=== PATIENT | female | born 1975 | race African-American/Black ===

== ENCOUNTER 2016-09-14 11:00 | Emergency (ER) ==
[2016-09-14] MEDS ORDERED: HUMALOG (PARKWAY) IV ONE (11:57)
[2016-09-14] MEDS ORDERED: NS 1,000 ML IV ONE ×4 (11:57→15:10)
[2016-09-14 11:59] LABS: MANUAL DIFF NEEDED? NO
[2016-09-14] MEDS ORDERED: REGLAN IV ONE (11:59)
[2016-09-14] MEDS ORDERED: HUMULIN R IV ONE ×2 (12:00→15:10)
[2016-09-14 12:01] LABS: BASO% 0.3 % (0.0-0.8); EOS# 0.09 X1000 (0.0-0.7); EOS% 1.3 % (0.0-10.0); HEMATOCRIT 39.4 % (37.0-47.0); HEMOGLOBIN 13.2 g/dL (12.0-16.0); IMM GRAN# 0.05 X1000 (0.0-0.04); IMM GRAN% 0.7 % (0.0-0.5); LYMPH% 20.6 % (20.5-51.1); MCH 25.6 PG (27-31); MCHC 33.5 g/dL (33-37); MCV 76.4 FL (81-99); MONO% 10.3 % (1.7-9.3); MPV 12.2 FL (7.4-10.4); NEUT% 66.8 % (42.2-75.2); PLT 350 X1000 (130-400); RBC 5.16 XMIL (4.2-5.4)
--- NOTE | 2016-09-14 12:01 | PROVIDER DOCUMENTATION ---
HPI-General Adult - General Source: patient - History of Present Illness -Gen Adult Nature of Presenting Problems: [place] LOPEZ PRESENTS TO ED WITH C/O PT STATES DIARRHEA X 2DAYS. PT STATES HEADACHE , DIZZINESS, ABDOMEN CRAMPING AND SEEING LINES IN HER VISION. PT DENIES ANY N/V/ D. Location of Pain/Injury: reports: head, abdomen Pain Radiation: reports: no radiation Quality of Pain: reports: aching, cramping Severity: reports: mild Onset/Duration: reports: 2 days ago Timing: reports: still present Context/Activities at Onset: reports: light activity Modifying Factors: improves with: nothing Associated Symptoms: reports: diarrhea, dizziness Similar Symptoms Previously?: No Recently seen or treated by another doctor?: No <Sammy Daly - Last Filed: 09/14/16 13:37> <Ty Gutiérrez - Last Filed: 09/14/16 17:00> - General Chief Complaint: Diarrhea Stated Complaint: DIARRHEA Time Seen by Provider: 09/14/16 11:32 Allergies/Adverse Reactions: Patient Allergies Allergy/AdvReac Type Severity Reaction Status Date / Time cephalexin monohydrate * Allergy ITCHING Verified 08/06/14 11:36 [From Keflex] Home Medications: Home Medication List Medication Instructions Recorded Confirmed Last Taken Type Amlodipine Besylate [Norvasc] 2.5 mg PO DAILY 11/08/13 12/08/14 12/08/14 History LISINOpril [Prinivil] 2.5 mg PO DAILY 11/08/13 12/08/14 12/08/14 History Metoprolol [Lopressor] 25 mg PO DAILY 11/08/13 12/08/14 12/08/14 History Atorvastatin Calcium [Lipitor] 40 mg PO DAILY 03/21/14 12/08/14 07/07/14 History Insulin Glargine,Hum.rec.anlog 40 unit SQ BID 07/07/14 12/08/14 12/08/14 History [Lantus Solostar] Acetaminophen with Codeine 1 each PO Q6H PRN PRN #20 tablet 12/08/14 Unknown Rx [Tylenol with Codeine #3 Tablet] Sulfamethoxazole/Tmp D.s. [Septra 1 each PO BID #30 tablet 12/08/14 Unknown Rx Ds] Tramadol [Ultram] 50 mg PO Q6H PRN PRN #20 tablet 12/09/14 Unknown Rx Review of Systems - Adult - REVIEW OF SYSTEMS - ADULT Constitutional: denies: chills, fever Eyes: reports: no symptoms reported Ears, Nose, Mouth & Throat: reports: no symptoms reported Cardiovascular: denies: chest pain, palpitations, syncope Respiratory: denies: cough, shortness of breath, wheezing Gastrointestinal: reports: abdominal pain, diarrhea. denies: nausea, vomiting Genitourinary: reports: no symptoms reported Musculoskeletal: denies: back pain, neck pain Integumentary: reports: no symptoms reported Neurological: denies: dizziness/vertigo, headache/migraines, syncope Psychiatric: reports: no symptoms reported Endocrine: reports: no symptoms reported Hematologic/Lymphatic: reports: no symptoms reported Allergic/Immunologic: reports: no symptoms reported All Other Systems: Reviewed and Negative <Sammy Daly - Last Filed: 09/14/16 13:37> Past History - Adult - PAST MEDICAL HISTORY-ADULT Review of Records: reports: Nursing Assessment Review, Medications Reviewed Cardiovascular: reports: HTN, hyperlipidemia Respiratory: reports: bronchitis Gastrointestinal: reports: GERD Endocrine/Immune: reports: Diabetes - PRIOR SURGERIES/PROCEDURES Surgical/Procedure History: reports: BTL, - IMMUNIZATION STATUS Childhood Immunizations: See Nurse Assessment Flu Vaccine: See Nurse Assessment - FAMILY HISTORY Family History: reviewed, not pertinent - SOCIAL HISTORY Smoking: denies Substance Use: denies Alcohol Use Frequency: never Living Situation: family <Sammy Daly - Last Filed: 09/14/16 13:37> Physical Exam-General - CONSTITUTIONAL General Appearance: alert - EYES Eyes: PERRL/EOMI, pink conjunctivae - HEAD, EARS, NOSE, MOUTH & THROAT HENMT: normocephalic/atraumatic, moist mucous membranes - NECK Neck: non-tender, full range of motion, supple - RESPIRATORY Respiratory: chest non-tender, lungs clear, normal breath sounds - CARDIOVASCULAR Cardiovascular: normal peripheral pulses, tachycardia - GASTROINTESTINAL (ABDOMEN) Abdominal Exam: normal bowel sounds, soft, tenderness - LYMPHATIC Lymphatic: no adenopathy - MUSCULOSKELETAL Back Exam: normal inspection, no CVA tenderness, no vertebral tenderness Extremity: normal range of motion, non-tender - SKIN Integumentary: normal color, normal turgor, warm/dry - NEUROLOGIC Neurologic: grossly normal - PSYCHIATRIC Psych/Mental Status: oriented x 3 <Sammy Daly - Last Filed: 09/14/16 13:37> Progress - PLAN OF CARE/RESULTS Progress/Plan/Lab Results: Laboratory Tests 09/14/16 09/14/16 09/14/16 11:19 11:30 11:30 WBC RBC Hgb Hct MCV MCH MCHC RDW Std Deviation Plt Count MPV Immature Gran % (Auto) Neut % (Auto) Lymph % (Auto) [place] % (Auto) Eos % (Auto) Baso % (Auto) Immature Gran # (Auto) Neut # (Auto) Lymph # (Auto) [place] # (Auto) Eos # (Auto) Baso # (Auto) Sodium 129 L Potassium 3.6 Chloride 92 L Carbon Dioxide 22 L Anion Gap 16 BUN 9 Creatinine 0.9 Estimated GFR/1.73 m2 > 60 BUN/Creatinine Ratio 10 Glucose 546 H* POC Glucose 461 H D Estimat Average Glucose 312 Hemoglobin A1c 12.5 H Calculated Osmolality 282 Calcium 9.6 Total Bilirubin 0.60 AST 39 H ALT 27 Alkaline Phosphatase 85 Total Protein 7.4 Albumin 3.8 Globulin 4.0 Albumin/Globulin Ratio 1.0 09/14/16 11:30 WBC 6.78 RBC 5.16 Hgb 13.2 Hct 39.4 MCV 76.4 L MCH 25.6 L MCHC 33.5 RDW Std Deviation 12.6 Plt Count 350 MPV 12.2 H Immature Gran % (Auto) 0.7 H Neut % (Auto) 66.8 Lymph % (Auto) 20.6 [place] % (Auto) 10.3 H Eos % (Auto) 1.3 Baso % (Auto) 0.3 Immature Gran # (Auto) 0.05 H Neut # (Auto) 4.52 Lymph # (Auto) 1.40 [place] # (Auto) 0.70 H Eos # (Auto) 0.09 Baso # (Auto) 0.02 Sodium Potassium Chloride Carbon Dioxide Anion Gap BUN Creatinine Estimated GFR/1.73 m2 BUN/Creatinine Ratio Glucose POC Glucose Estimat Average Glucose Hemoglobin A1c Calculated Osmolality Calcium Total Bilirubin AST ALT Alkaline Phosphatase Total Protein Albumin Globulin Albumin/Globulin Ratio Orders Category Date Time Status ED: Orthostatic Vital Signs (E as directed Care 09/14/16 11:14 Active FSBS/Accucheck Result NOW Care 09/14/16 13:35 Active Finger Stick Blood Sugar (ED) DIRECTED Care 09/14/16 11:14 Active A1C HGB W EST AVG GLUCOSE [CHEM] Stat Lab 09/14/16 11:30 Completed CBC WITH DIFF [HEME] Stat Lab 09/14/16 11:30 Completed COMPREHENSIVE METABOLIC PANEL [CHEM] Stat Lab 09/14/16 11:30 Completed 0.9% Sodium Chloride Inj [Ns] 1,000 ml Med 09/14/16 11:59 Active IV 150 mls/hr 0.9% Sodium Chloride Inj [Ns] 1,000 ml Med 09/14/16 11:57 Discontinued IV 999 mls/hr 0.9% Sodium Chloride Inj [Ns] 1,000 ml Med 09/14/16 11:59 Discontinued IV 999 mls/hr Insulin Human Reg Dose ([address] [Humulin R Dose ([place] Med 09/14/16 12:11 Discontinued )] 1 dose .ROUTE .STK-MED ONE Insulin Human Reg Dose ([address] [Humulin R Dose ([place] Med 09/14/16 12:30 Discontinued )] 5 dose IV NOW ONE Insulin Human Regular [Humulin R] Med 09/14/16 12:00 Discontinued 5 unit IV NOW ONE Insulin Lispro ([place]) [Humalog ([place])] Med 09/14/16 11:57 Discontinued 5 units IV NOW ONE Metoclopramide [Reglan] Med 09/14/16 11:59 Discontinued 10 mg IV NOW ONE Vital Signs - 24 hr 09/14/16 09/14/16 11:11 11:25 Temperature 98 F Pulse Rate 99 H Pulse Rate [ 106 H Sitting] Pulse Rate [ 113 H Standing] Pulse Rate [ 101 H Supine] Respiratory 18 Rate Blood Pressure 134/89 Blood Pressure 124/84 [Sitting] Blood Pressure 132/85 [Standing] Blood Pressure 135/83 [Supine] O2 Sat by Pulse 99 Oximetry <Sammy Daly - Last Filed: 09/14/16 13:37> - PLAN OF CARE/RESULTS Progress/Plan/Lab Results: Orders Category Date Time Status ED: Orthostatic Vital Signs (E as directed Care 09/14/16 11:14 Active FSBS/Accucheck Result NOW Care 09/14/16 13:35 Active Finger Stick Blood Sugar (ED) DIRECTED Care 09/14/16 11:14 Active A1C HGB W EST AVG GLUCOSE [CHEM] Stat Lab 09/14/16 11:30 Completed CBC WITH DIFF [HEME] Stat Lab 09/14/16 11:30 Completed COMPREHENSIVE METABOLIC PANEL [CHEM] Stat Lab 09/14/16 11:30 Completed 0.9% Sodium Chloride Inj [Ns] 1,000 ml Med 09/14/16 11:57 Discontinued IV 999 mls/hr 0.9% Sodium Chloride Inj [Ns] 1,000 ml Med 09/14/16 11:59 Discontinued IV 999 mls/hr 0.9% Sodium Chloride Inj [Ns] 1,000 ml Med 09/14/16 15:10 Discontinued IV 999 mls/hr Insulin Human Reg Dose ([address] [Humulin R Dose ([place] Med 09/14/16 12:11 Discontinued )] 1 dose .ROUTE .K-MED ONE Insulin Human Reg Dose ([address] [Humulin R Dose ([place] Med 09/14/16 12:30 Discontinued )] 5 dose IV NOW ONE Insulin Human Regular ([place] [Humulin R ([place])] Med 09/14/16 15:42 Discontinued 5 units IV NOW ONE Insulin Human Regular [Humulin R] Med 09/14/16 12:00 Discontinued 5 unit IV NOW ONE Insulin Lispro ([place]) [Humalog ([place])] Med 09/14/16 11:57 Discontinued 5 units IV NOW ONE Metoclopramide [Reglan] Med 09/14/16 11:59 Discontinued 10 mg IV NOW ONE Vital Signs Temp Pulse Pulse Pulse Pulse Resp BP 09/14/16 13:44 97 H 16 117/72 09/14/16 11:25 106 H 113 H 101 H 09/14/16 11:11 98 F 99 H 18 134/89 BP BP BP Pulse Ox 09/14/16 13:44 97 09/14/16 11:25 124/84 132/85 135/83 09/14/16 11:11 99 cephalexin monohydrate * [From Keflex] Allergy (Verified 08/06/14 11:36) ITCHING Amlodipine Besylate [Norvasc] 2.5 mg PO DAILY 11/08/13 LISINOpril [Prinivil] 2.5 mg PO DAILY 11/08/13 Metoprolol [Lopressor] 25 mg PO DAILY 11/08/13 Atorvastatin Calcium [Lipitor] 40 mg PO DAILY 03/21/14 Insulin Glargine,Hum.rec.anlog [Lantus Solostar] 40 unit SQ BID 07/07/14 Acetaminophen with Codeine [Tylenol with Codeine #3 Tablet] 1 each PO Q6H PRN PRN #20 tablet 12/08/14 Sulfamethoxazole/Tmp D.s. [Septra Ds] 1 each PO BID #30 tablet 12/08/14 Tramadol [Ultram] 50 mg PO Q6H PRN PRN #20 tablet 12/09/14 Laboratory 09/14/16 09/14/16 09/14/16 11:30 11:30 11:30 WBC 6.78 RBC 5.16 Hgb 13.2 Hct 39.4 MCV 76.4 L MCH 25.6 L MCHC 33.5 RDW Std Deviation 12.6 Plt Count 350 MPV 12.2 H Immature Gran % (Auto) 0.7 H Neut % (Auto) 66.8 Lymph % (Auto) 20.6 [place] % (Auto) 10.3 H Eos % (Auto) 1.3 Baso % (Auto) 0.3 Immature Gran # (Auto) 0.05 H Neut # (Auto) 4.52 Lymph # (Auto) 1.40 [place] # (Auto) 0.70 H Eos # (Auto) 0.09 Baso # (Auto) 0.02 Sodium 129 L Potassium 3.6 Chloride 92 L Carbon Dioxide 22 L Anion Gap 16 BUN 9 Creatinine 0.9 Estimated GFR/1.73 m2 > 60 BUN/Creatinine Ratio 10 Glucose 546 H* POC Glucose Estimat Average Glucose 312 Hemoglobin A1c 12.5 H Calculated Osmolality 282 Calcium 9.6 Total Bilirubin 0.60 AST 39 H ALT 27 Alkaline Phosphatase 85 Total Protein 7.4 Albumin 3.8 Globulin 4.0 Albumin/Globulin Ratio 1.0 09/14/16 11:19 WBC RBC Hgb Hct MCV MCH MCHC RDW Std Deviation Plt Count MPV Immature Gran % (Auto) Neut % (Auto) Lymph % (Auto) [place] % (Auto) Eos % (Auto) Baso % (Auto) Immature Gran # (Auto) Neut # (Auto) Lymph # (Auto) [place] # (Auto) Eos # (Auto) Baso # (Auto) Sodium Potassium Chloride Carbon Dioxide Anion Gap BUN Creatinine Estimated GFR/1.73 m2 BUN/Creatinine Ratio Glucose POC Glucose 461 H D Estimat Average Glucose Hemoglobin A1c Calculated Osmolality Calcium Total Bilirubin AST ALT Alkaline Phosphatase Total Protein Albumin Globulin Albumin/Globulin Ratio last fingerstick is 260, feels better, wants to go <Ty Gutiérrez - Last Filed: 09/14/16 17:00> Departure <Sammy Daly - Last Filed: 09/14/16 13:37> - Departure Time of Disposition Order: 16:57 Certified Medical Emergency: Emergent <Ty Gutiérrez - Last Filed: 09/14/16 17:00> - Departure DIAGNOSIS: Hyperglycemia Diarrhea Qualifiers: Diarrhea type: unspecified type Qualified Code(s): R19.7 - Diarrhea, unspecified Disposition: HOME 01 Condition: Good Additional Instructions: ED Follow Up Instructions: You have been treated by a care provider in the Emergency Department. These instructions are being provided to you so you can have an understanding of how to care for yourself upon discharge. Upon discharge from the Emergency Department, you are responsible for making arrangements for follow-up care by a physician of your choice. Take all prescribed medications as directed. Return to the Emergency Department immediately for any new or worsening symptoms. You may call the Physician Referral phone number at [phone] to obtain a list of Physicians who are taking new patients. Instructions: Diarrhea Attestation - Scribe Verification/Attestation Scribe:: Sammy Daly Acting as Scribe for:: Ty Gutiérrez Scribe documention review:: This chart was documented by a scribe and accurately reflects the service the provider performed and the decisions made by the provider. <Sammy Daly - Last Filed: 09/14/16 13:37> Physician Attestation - Physician Attestation I, the provider, attest to the following statement:: Ty Gutiérrez Physician documentation Attestation:: This documentation recorded by the scribe accurately reflects the service I personally performed and the decisions made by me. <Ty Gutiérrez - Last Filed: 09/14/16 17:00>
[2016-09-14] MEDS ORDERED: HUMULIN R DOSE (PARKWAY) ONE (12:11)
[2016-09-14 12:14] LABS: HEMOGLOBIN A1C 12.5 % (4.8-6.0)
[2016-09-14 12:30] LABS: AGAP 16; ALBUMIN 3.8 g/dL (3.5-5.0); ALKALINE PHOSPHATASE 85 U/L (32-104); BUN 9 mg/dL (8-22); CALCIUM 9.6 mg/dL (8.8-10.2); CHLORIDE 92 mmol/L (98-107); COSMO 282; GOT 39 U/L (10-30); GPT 27 U/L (10-36); POTASSIUM 3.6 mmol/L (3.5-5.1); SODIUM 129 mmol/L (136-145); TCO2 22 mmol/L (25-35); TOTAL PROTEIN 7.4 g/dL (6.3-8.3)
[2016-09-14] MEDS ORDERED: HUMULIN R DOSE (PARKWAY) IV ONE (12:30)
[2016-09-14] MEDS ORDERED: HUMULIN R 100 UNIT in NS 100 ML IV SCH (13:00)
[2016-09-14] MEDS ORDERED: HUMULIN R (PARKWAY) IV ONE (15:42)
[2016-09-14 17:21] VITALS: BP 114/72
== END 2016-09-14 17:21 | disposition home or self-care (01) ==
LOC: P.ED 11:00
DX: E11.65 Type 2 diabetes mellitus with hyperglycemia (principal); R19.7 Diarrhea, unspecified; I10 Essential (primary) hypertension; E78.5 Hyperlipidemia, unspecified; R00.0 Tachycardia, unspecified; R10.9 Unspecified abdominal pain; Z79.899 Other long term (current) drug therapy; Z79.4 Long term (current) use of insulin
CPT/HCPCS: 80053; 82948; 83036; 85025; J1815; J2765; J7030